=== PATIENT | male | born 1990 | race American Indian/Alaskan Native ===

== ENCOUNTER 2018-12-09 09:13 | Emergency (ER) | payer SELFPAY ==
[2018-12-09 09:26] VITALS: BP 123/67
--- NOTE | 2018-12-09 10:30 | Emergency Department Report ---
Chief Complaint: Urogenital-Female Stated Complaint: GENTILES PROBLEMS Time Seen by Provider: 12/09/18 10:11 - HPI History of Present Illness: She has a 28-year-old male who is presenting with dysuria and penile discharge for the last 2 days. Patient has had a new sexual partner. Patient denies any pain in the testicles or testicular swelling. - ROS Review of Systems: All other systems reviewed and are negative - Exam Vital Signs: Vital Signs 12/09/18 09:24 Temperature 98.1 F Pulse Rate 65 Respiratory 18 Rate Blood Pressure 123/67 [Left] O2 Sat by Pulse 100 Oximetry Physical Exam: Abdomen soft nontender patient is in no acute distress MSE screening note: Focused history and physical exam performed. Due to findings the following was ordered: ED Medical Decision Making - Medical Decision Making Patient with a nonmedical emergency. Patient given information to have this issue treated at the health Department be discharged home. ED Disposition for MSE Clinical Impression: Urethritis Disposition: MED SCREENING EXAM-LEFT Is pt being admited?: No Does the pt Need Aspirin: No Condition: Stable Instructions: Nonspecific Urethritis in Men (ED) Time of Disposition: 10:30
== END 2018-12-09 10:57 | disposition left against medical advice (07) ==
LOC: ED 09:13
DX: N34.2 Other urethritis (principal)
CPT/HCPCS: 99282

== ENCOUNTER 2019-04-07 12:33 | Emergency (ER) | payer SELFPAY ==
--- NOTE | 2019-04-07 14:32 | Event Note ---
ED Screening Note Date of service: 04/07/19 Time: 14:27 ED Screening Note: 28 y o male presents with chest pain mid sternum happened while wrapping up a pellet yesterday at work took ibu last night and HAD SOME RELIEF This initial assessment/diagnostic orders/clinical plan/treatment(s) is/are subject to change based on patients health status, clinical progression and re- assessment by fellow clinical providers in the ED. Further treatment and workup at subsequent clinical providers discretion. Patient/guardian urged not to elope from the ED as their condition may be serious if not clinically assessed and managed. Initial orders include: cxR
--- NOTE | 2019-04-07 15:03 | XRay Report ---
CHEST 2 VIEWS INDICATION: pain. COMPARISON: None FINDINGS: Support devices: None. Heart: Within normal limits. Lungs/pleura: No acute air space or interstitial disease. No pneumothorax. Additional findings: None. IMPRESSION: No acute findings. Signer Name: Yoel Lema Jr, MD Signed: 04/07/2019 2:58 PM Workstation Name: [id number]
--- NOTE | 2019-04-07 16:00 | Emergency Department Report ---
ED General Adult HPI - General Chief complaint: Chest Pain Stated complaint: CHEST PAIN Time Seen by Provider: 04/07/19 15:58 Source: patient, RN notes reviewed Mode of arrival: Ambulatory Limitations: No Limitations - History of Present Illness Initial comments: This is a pleasant 28-year-old gentleman who is not known to this provider previously. He states he does not have a primary care doctor and has no chronic medical conditions. The patient indicates that he is right-hand dominant and does heavy lifting for work. He was at work yesterday, using his right upper extremity to adjust a heavy object, when he developed epigastric pain, and difficulty taking a deep breath. The patient denied substernal chest pain. He indicated that the pain is also present in the back. He denied vomiting and diaphoresis. He denies exertional shortness of breath. He denies DVT and pulmonary embolism risk factors. He was taken to an emergency room yesterday, however, he had to wait for 5 hours, and he indicates that he got frustrated and left. He presents today for recurrent pain, aching and throbbing in nature, increases with palpation, position, decreases with rest. It also decreased with [id number] NSAIDs. -: Gradual, hour(s), days(s) Location: abdomen Quality: aching Consistency: intermittent Improves with: medication, rest Worsens with: movement - Related Data Previous Rx's Medication Instructions Recorded Last Taken Type Acetaminophen [Non-Aspirin Extra 500 mg PO Q6HR PRN #30 tablet 04/07/19 Unknown Rx Strength] Ibuprofen [Motrin] 600 mg PO Q8H PRN #30 tablet 04/07/19 Unknown Rx Allergies Allergy/AdvReac Type Severity Reaction Status Date / Time No Known Allergies Allergy Unverified 12/09/18 09:16 ED Review of Systems ROS: Stated complaint: CHEST PAIN Other details as noted in HPI Constitutional: denies: fever Respiratory: denies: cough, shortness of breath, wheezing Cardiovascular: denies: syncope Gastrointestinal: denies: nausea, vomiting Musculoskeletal: back pain, myalgia Neurological: denies: weakness ED Past Medical Hx - Past Medical History Previous Medical History?: No - Surgical History Past Surgical History?: No - Social History Smoking Status: Never Smoker Substance Use Type: None - Medications Home Medications: Home Medications Medication Instructions Recorded Confirmed Last Taken Type Acetaminophen [Non-Aspirin Extra 500 mg PO Q6HR PRN #30 tablet 04/07/19 Unknown Rx Strength] Ibuprofen [Motrin] 600 mg PO Q8H PRN #30 tablet 04/07/19 Unknown Rx ED Physical Exam - General Limitations: No Limitations General appearance: alert, in no apparent distress - Head Head exam: Present: atraumatic, normocephalic - Eye Eye exam: Present: normal appearance, EOMI. Absent: nystagmus - ENT ENT exam: Present: normal exam, normal orophraynx, mucous membranes moist, normal external ear exam - Neck Neck exam: Present: normal inspection, full ROM. Absent: tenderness, meningismus - Respiratory Respiratory exam: Present: normal lung sounds bilaterally. Absent: respiratory distress - Cardiovascular Cardiovascular Exam: Present: regular rate, normal rhythm, normal heart sounds. Absent: bradycardia, tachycardia, irregular rhythm, systolic murmur, diastolic murmur, rubs, gallop - GI/Abdominal GI/Abdominal exam: Present: soft. Absent: distended, tenderness, guarding, urmila ound, rigid, pulsatile mass - Rectal Rectal exam: Present: deferred - Extremities Exam Extremities exam: Present: normal inspection, full ROM, other (2+ pulses noted in the bilateral upper, lower extremities. There is no long bone tenderness. Musculoskeletal compartments are soft. The pelvis is stable.). Absent: pedal edema, joint swelling, calf tenderness - Back Exam Back exam: Present: normal inspection, full ROM, paraspinal tenderness (2+ pulses noted in the bilateral upper, lower extremities. There is no long bone tenderness. Musculoskeletal compartments are soft. The pelvis is stable.). Absent: tenderness, CVA tenderness (R), vertebral tenderness - Neurological Exam Neurological exam: Present: alert, normal gait, other (there is no facial droop. The tongue is midline. Extraocular movements are intact bilaterally. Patient speaking in full complete sentences. Shoulder shrug is intact bilaterally. Hearing is grossly intact bilaterally. Visual acuity intact to finger counting and color perception at a close distance. 5/5 strength 4 extremities. Sensation intact to light touch in 4 extremities.). Absent: motor sensory deficit - Psychiatric Psychiatric exam: Present: normal affect, normal mood - Skin Skin exam: Present: warm, dry, intact, normal color. Absent: rash ED Course Vital Signs 04/07/19 14:28 Temperature 98.2 F Pulse Rate 77 Respiratory 18 Rate Blood Pressure 106/66 O2 Sat by Pulse 98 Oximetry ED Medical Decision Making - Lab Data Vital Signs 04/07/19 14:28 Temperature 98.2 F Pulse Rate 77 Respiratory 18 Rate Blood Pressure 106/66 O2 Sat by Pulse 98 Oximetry - EKG Data -: EKG Interpreted by [facility] EKG shows normal: sinus rhythm, axis, intervals, QRS complexes, ST-T waves - EKG Data When compared to previous EKG there are: previous EKG unavailable 04/07/19 16:20 There is no prior EKG available for comparison. The EKG shows a sinus rhythm, 72 bpm, normal axis, normal intervals, poor R-wave progression, low voltage, the EKG is abnormal, question incomplete right bundle branch block, the EKG is not consistent with ST elevation myocardial infarction. There is no prior for comparison. - Radiology Data Radiology results: report reviewed, image reviewed int Report Referring Physician: AVERY PRICE Patient Name: JOHNNIE AYALA Date of : 1990 Sex: Male Report Date: 2019-04-07 Report Status: Finalized Findings [facility] [address] [place] [address] XRay Report Signed Patient: JOHNNIE AYALA MR#: [id number] : 1990 Acct:[id number] Age/Sex: 28 / M ADM Date: 04/07/19 Loc: ED Attending Dr: Ordering Physician: MIKE CASTRO Date of Service: 04/07/19 Procedure(s): XR chest routine 2V Accession Number(s): [id number] cc: MIKE CASTRO Fluoro Time In Minutes: CHEST 2 VIEWS INDICATION: pain. COMPARISON: None FINDINGS: Support devices: None. Heart: Within normal limits. Lungs/pleura: No acute air space or interstitial disease. No pneumothorax. Additional findings: None. IMPRESSION: No acute findings. Signer Name: Yoel Lema Jr, MD Signed: 04/07/2019 2:58 PM Workstation Name: [id number] Transcribed By: TTR Dictated By: YOEL LEMA JR, MD Electronically Authenticated By: YOEL LEMA JR, MD Signed Date/Time: 04/07/191457 DD/ 57 - Medical Decision Making Differential diagnosis, including not limited to: GERD, gastritis, hiatal hernia, referred muscular pain, referred thoracic pain, fracture, dislocation Assessment and plan: 28-year-old gentleman with reproducible muscular pain, in the context of heavy lifting, twisting and position, not tachycardic, hypoxic or tachypneic, no pulmonary embolism or DVT risk factors, low risk by well's criteria, perc negative He is afebrile with reassuring vital signs, has an unremarkable physical exam, and is noted to be playing and talking on a cellular phone and in no acute distress. EKG is reviewed and appreciated, not consistent with acute ischemic findings, x-ray the chest unremarkable, patient resting comfortably and in no acute distress. Patient does not appear to have an emergent medical condition at this time. He felt improved after pain medication. Critical care attestation.: If time is entered above; I have spent that time in minutes in the direct care of this critically ill patient, excluding procedure time. ED Disposition Clinical Impression: Muscular abdominal pain in epigastric region Disposition: DC-01 TO HOME OR SELFCARE Is pt being admited?: No Does the pt Need Aspirin: No Condition: Stable Additional Instructions: Rest, avoid heavy lifting, and avoid strenuous physical activities. Take the pain medications as needed and/or directed. Follow-up with a primary care doctor within the next month to 6 weeks. Return to emergency room right away with new, worsened, different symptoms, or symptoms not present on the initial emergency room evaluation. Referrals: [facility] [Provider Group] - 3-5 Days [facility] [Provider Group] - 3-5 Days
[2019-04-07] MEDS ORDERED: IBUPROFEN 400 MG TAB PO ONE (16:07)
[2019-04-07] MEDS ORDERED: ACETAMINOPHEN 325 MG TAB PO ONE (16:07)
[2019-04-07 16:40] VITALS: BP 107/68
== END 2019-04-07 18:13 | disposition home or self-care (01) ==
LOC: ED 12:33
DX: R10.13 Epigastric pain (principal)
CPT/HCPCS: 71046; 93005; 93010